=== PATIENT | male | born 1940 ===

== ENCOUNTER 2023-10-03 15:34 | Inpatient (IN) | payer OTHER ==
[2023-10-03] VITALS (11 sets, daily range): BP systolic 127–165; BP diastolic 76–90
[~2023-10-03] VITALS: Ht 175.3 cm; Wt 81.7 kg
[2023-10-03 17:49] LABS: BASOPHILS ABSOLUTE AUTO 0.06 K/mm3 (0.00-0.23); BASOPHILS PERCENT AUTO 1 % (0-2); EOSINOPHILS ABSOLUTE AUTO 0.36 K/mm3 (0.00-0.68); EOSINOPHILS PERCENT AUTO 4 % (0-6); Hematocrit 31.4 % (37.0-53.0); Hemoglobin 10.5 g/dL (13.5-17.5); IMMATURE GRAN ABSOLUTE AUTO 0.03 K/mm3 (0.00-0.10); IMMATURE GRAN PERCENT AUTO 0 % (0-1); LYMPHOCYTES ABSOLUTE AUTO 1.29 K/mm3 (0.84-5.20); LYMPHOCYTES PERCENT AUTO 15 % (21-46); MONOCYTES ABSOLUTE AUTO 0.56 K/mm3 (0.16-1.47); MONOCYTES PERCENT AUTO 6 % (4-13); Mean Corpuscular HGB 30.4 pg (26.0-34.0); Mean Corpuscular HGB Conc 33.4 g/dL (31.5-36.5); Mean Corpuscular Volume 91 fL (80-100); Mean Platelet Volume 12.4 fL (9.1-12.4); NEUTROPHILS ABSOLUTE AUTO 6.48 K/mm3 (1.96-9.15); NEUTROPHILS PERCENT AUTO 74 % (41-73); Platelet Count 181 K/mm3 (150-400); RDW Coefficient Variation 14.3 % (11.7-14.2); RDW Standard Deviation 47.7 fL (35.1-46.3); Red Blood Cell Count 3.45 M/mm3 (4.30-5.90); White Blood Cell Count 8.78 K/mm3 (4.00-11.30)
[2023-10-03 18:25] LABS: Albumin, Blood 3.2 g/dL (3.4-5.0); Albumin/Globulin Ratio 1.2 (0.8-1.8); Bilirubin, Total 0.5 mg/dL (0.1-1.0); Bun/Creatinine Ratio 19.7 (12.0-20.0); Calcium, Blood 7.9 mg/dL (8.5-10.1); Creatinine, Blood 2.29 mg/dL (0.60-1.20); Globulin, Blood 2.7 g/dL (2.2-4.0); Potassium, Blood 4.9 mmol/L (3.5-5.5); Total Protein, Blood 5.9 g/dL (6.4-8.2)
--- NOTE | 2023-10-03 21:12 | NUR ---
ARRIVAL PT NEW ADMIT FROM PACU. ARRIVED A/OX4, IN NO DISTRESS. ON 2L VIA NC. EXTERNAL FIXATOR PRESENT ON LLE. CAP REFILL 3-4 SECONDS. PT CAN MOVE TOES ON COMMAND. LOCAL IN PLACE, MINIMAL SENSATION. PT SDENIES PAIN AT THIS TIME. VSS, MILD TACHYCARDIA NOTED. PT TALKING AT FAMILY ON THE PHONE AT THIS TIME
--- NOTE | 2023-10-03 22:25 | NUR ---
CT SCAN PT OFF TO CT SCAN
--- NOTE | 2023-10-03 22:52 | NUR ---
CT SCAN PT IS BACK FROM CT, O2 TITRATED DOWN TO 1L VIA NC. PT REPORTS MINIMAL PAIN AT THIS TIME. LLE ELEVATED AND ICED PER DR REBOLLEDO. CALL LIGHT IN REACH
[2023-10-04 04:33] VITALS: BP 145/82
[2023-10-04 05:14] LABS: BASOPHILS ABSOLUTE AUTO 0.04 K/mm3 (0.00-0.23); BASOPHILS PERCENT AUTO 1 % (0-2); EOSINOPHILS ABSOLUTE AUTO 0.29 K/mm3 (0.00-0.68); EOSINOPHILS PERCENT AUTO 4 % (0-6); Hematocrit 28.6 % (37.0-53.0); Hemoglobin 9.5 g/dL (13.5-17.5); IMMATURE GRAN ABSOLUTE AUTO 0.01 K/mm3 (0.00-0.10); IMMATURE GRAN PERCENT AUTO 0 % (0-1); LYMPHOCYTES ABSOLUTE AUTO 1.39 K/mm3 (0.84-5.20); LYMPHOCYTES PERCENT AUTO 19 % (21-46); MONOCYTES ABSOLUTE AUTO 0.75 K/mm3 (0.16-1.47); MONOCYTES PERCENT AUTO 10 % (4-13); Mean Corpuscular HGB 30.3 pg (26.0-34.0); Mean Corpuscular HGB Conc 33.2 g/dL (31.5-36.5); Mean Corpuscular Volume 91 fL (80-100); Mean Platelet Volume 11.7 fL (9.1-12.4); NEUTROPHILS PERCENT AUTO 66 % (41-73); Platelet Count 156 K/mm3 (150-400); RDW Coefficient Variation 14.6 % (11.7-14.2); RDW Standard Deviation 48.7 fL (35.1-46.3); Red Blood Cell Count 3.14 M/mm3 (4.30-5.90); White Blood Cell Count 7.28 K/mm3 (4.00-11.30)
--- NOTE | 2023-10-04 05:30 | NUR ---
SHIFT SUMMARY POD1 EXTERNAL FIXATION. SENSATION REMAINS INTACT BUT DULLED D/T LOCAL BLOCK. CAP REFILL SLIGHTLY SLOW AT 3-4 SECONDS. PT MOVES TOES ON COMMAND. LLE HAS BEEN ELEVATED AND ICE BEHIND THE KNEE PER DR. REBOLLEDO. PT MEDICATED FOR PAIN TWICE WITH GOOD RESULT. PT VOIDING INTO URINAL W/O DIFFICUTLY. NEURO CHECKS HAVE REMAINED WNL. NO ACUTE EVENTS T/O THE NIGHT. POSSIBLE D/C TODAY
[2023-10-04 05:55] LABS: Magnesium, Blood 2.1 mg/dL (1.6-2.4)
[2023-10-04 06:00] LABS: Albumin, Blood 2.8 g/dL (3.4-5.0); Albumin/Globulin Ratio 1.2 (0.8-1.8); Bilirubin, Total 0.3 mg/dL (0.1-1.0); Bun/Creatinine Ratio 19.8 (12.0-20.0); Calcium, Blood 7.3 mg/dL (8.5-10.1); Creatinine, Blood 2.17 mg/dL (0.60-1.20); Globulin, Blood 2.4 g/dL (2.2-4.0); Potassium, Blood 4.7 mmol/L (3.5-5.5); Total Protein, Blood 5.2 g/dL (6.4-8.2)
[2023-10-04 07:33] VITALS: BP 135/74
[2023-10-04 08:48] LABS: IMMATURE RETIC FRACTION 12.9 % (2.3-16.0); RETIC HGB EQUIVALENT 35.2 pg (28.20-36.60); RETICULOCYTE ABSOLUTE 0.0494 M/mm3 (0.0200-0.1100); RETICULOCYTE COUNT PERCENT 1.59 % (0.50-2.50)
[2023-10-04] MEDS ORDERED: INSULANPEN SC (14:27)
[2023-10-04] MEDS ORDERED: ZOCOR20 MG PO (14:28)
[2023-10-04] MEDS ORDERED: MULVITA PO (14:28)
[2023-10-04] MEDS ORDERED: TAMS.4ER PO (14:28)
[2023-10-04] MEDS ORDERED: Synthroid200 MCG PO (14:29)
[2023-10-04] MEDS ORDERED: LEVOTHYROXINE200 MCG PO (14:30)
[2023-10-04] MEDS ORDERED: FERSU300 PO (14:31)
[2023-10-04] MEDS ORDERED: B12 PO (14:31)
[2023-10-04] MEDS ORDERED: Norco 10-325 T1 EACH PO (14:32)
[2023-10-04] MEDS ORDERED: NITR.4SL SL (14:34)
--- NOTE | 2023-10-04 15:26 | NUR ---
DR. SKINNER NOTIFIED THAT RECORDS FROM PCP WERE OBTAINED AND MED REC WAS UPDATED.
[2023-10-04 15:30] VITALS: BP 142/84
--- NOTE | 2023-10-04 18:36 | NUR ---
SHIFT SUMMARY PT PT POD#1 FROM EXTERNAL FIXATION TO REPAIR L ANKLE FX. PT WORKED WITH THERAPY AND IS A 1 ASSIST WHEN OOB. PLAN FOR DISCHARGE TO SNF. PAIN MANAGED WITH PO PAIN MEDICATION. PT TOLERATING PO. PT SITTING IN RECLINER, CALL LIGHT WITHIN REACH.
[2023-10-04 19:20] VITALS: BP 175/91
[2023-10-05 02:37] VITALS: BP 167/83
--- NOTE | 2023-10-05 04:27 | NUR ---
SHIFT SUMMARY POD 2 L ANKLE FX REPAIR c EXTERNAL FIXATION. NO ACUTE CHANGES OVERNIGHT, VS WNL FOR PT. PT STAYED IN CHAIR UNTIL APPROX 0245, STAND/PIVOT TO BED USING FWW c GB & 1-2 PERSON ASSIST. NWB ON L SIDE, ASHLY WRAP C/D/I. PAIN MANAGED PER EMAR. TOLERATING ORALS, VOIDING USING URINAL INDEPENDENTLY. ANTICIPATED D/C TO SNF IN [place] [facility] WHEN BED AVAILABLE. CALL LIGHT WITHIN REACH, BED IN LOWEST POSITION, WILL REPORT TO DAY RN.
[2023-10-05 07:05] VITALS: BP 155/82
[2023-10-05 14:26] VITALS: BP 139/77
[2023-10-05 17:10] LABS: SARS-Cov-2 (COVID-19) PCR, MMC NEGATIVE (NEGATIVE)
--- NOTE | 2023-10-05 18:33 | NUR ---
SHIFT SUMMARY/DISCHARGE: PT TO D/C PRIOR TO SHIFT CHANGE TO [facility]. PT A&O X4. PLEASANT AND COOPERATIVE WITH CARE. PT UP IN RECLINER FOR BREAKFAST AND LUNCH. PT C/O 5/10 PAIN THIS SHIFT. MEDICATED PER EMAR. PT WORKED WITH PT THIS SHIFT. PT ABLE TO USE WALKER WITH ONE PERSON ASSIST AND GB. REPORT GIVEN TO NURSE @ SNF. CALL LIGHT IN REACH. BED IN LOWEST POSITION.
== END 2023-10-05 18:47 | DRG 494 ==
LOC: ER 15:34 → SURS 19:28
PROVIDERS: Family Medicine; Physician Assistant; Podiatrist Foot & Ankle Surgery; Surgery; ADMIT Surgery
PROC: 0QSKXZZ Reposition Left Fibula, External Approach (ICD-10-PCS; 2023-10-03)
PROC: 0QSH35Z Reposition Left Tibia with External Fixation Device, Percutaneous Approach (ICD-10-PCS; principal; 2023-10-03 18:30)
PROC: 0QSHXZZ Reposition Left Tibia, External Approach (ICD-10-PCS; 2023-10-03 18:30)
DX: S82.872B Displaced pilon fracture of left tibia, initial encounter for open fracture type I or II (principal); N18.30 Chronic kidney disease, stage 3 unspecified; E11.22 Type 2 diabetes mellitus with diabetic chronic kidney disease; W13.2XXA Fall from, out of or through roof, initial encounter; G25.2 Other specified forms of tremor; R93.5 Abnormal findings on diagnostic imaging of other abdominal regions, including retroperitoneum; D63.1 Anemia in chronic kidney disease; E03.9 Hypothyroidism, unspecified; N40.0 Benign prostatic hyperplasia without lower urinary tract symptoms; E78.5 Hyperlipidemia, unspecified; E11.649 Type 2 diabetes mellitus with hypoglycemia without coma; Y92.89 Other specified places as the place of occurrence of the external cause; Z87.891 Personal history of nicotine dependence; Z79.4 Long term (current) use of insulin; Z60.2 Problems related to living alone; Z79.890 Hormone replacement therapy; Z79.84 Long term (current) use of oral hypoglycemic drugs
CPT/HCPCS: 36415; 70450; 71045; 71260; 72125; 73590; 73600; 73610; 73700; 74177; 80053; 82947; 83735; 85025; 85045; 93005; 93010; 96374-59; 96375-59; 97110; 97116; 97162; 99285-25; A9270; C1713; J0690; J1170; J1650; J1885; J2371; J2704; J2795; J3010; J7030; J7050; Q9967; U0002

== ENCOUNTER 2023-10-13 19:12 | Emergency (ER) | payer OTHER ==
[~2023-10-13] VITALS: Ht 175.3 cm; Wt 77.1 kg
[~2023-10-13 19:12] MED LIST: B12 PO; FERSU300 PO; INSULANPEN SC; LEVOTHYROXINE200 MCG PO; MULVITA PO; NITR.4SL SL; Norco 10-325 T1 EACH PO; Simvastatin40 MG PO; Synthroid200 MCG PO; TAMS.4ER PO
[2023-10-13 20:11] LABS: BASOPHILS ABSOLUTE AUTO 0.02 K/mm3 (0.00-0.23); BASOPHILS PERCENT AUTO 0 % (0-2); EOSINOPHILS ABSOLUTE AUTO 0.01 K/mm3 (0.00-0.68); EOSINOPHILS PERCENT AUTO 0 % (0-6); Hematocrit 29.5 % (37.0-53.0); Hemoglobin 10.1 g/dL (13.5-17.5); IMMATURE GRAN ABSOLUTE AUTO 0.05 K/mm3 (0.00-0.10); IMMATURE GRAN PERCENT AUTO 1 % (0-1); LYMPHOCYTES ABSOLUTE AUTO 0.38 K/mm3 (0.84-5.20); LYMPHOCYTES PERCENT AUTO 5 % (21-46); MONOCYTES ABSOLUTE AUTO 0.32 K/mm3 (0.16-1.47); MONOCYTES PERCENT AUTO 4 % (4-13); Mean Corpuscular HGB 30.6 pg (26.0-34.0); Mean Corpuscular HGB Conc 34.2 g/dL (31.5-36.5); Mean Corpuscular Volume 89 fL (80-100); Mean Platelet Volume 10.6 fL (9.1-12.4); NEUTROPHILS ABSOLUTE AUTO 7.72 K/mm3 (1.96-9.15); NEUTROPHILS PERCENT AUTO 91 % (41-73); Platelet Count 270 K/mm3 (150-400); RDW Coefficient Variation 13.8 % (11.7-14.2); RDW Standard Deviation 45.4 fL (35.1-46.3)
[2023-10-13 20:23] LABS: Albumin, Blood 3.1 g/dL (3.4-5.0); Albumin/Globulin Ratio 0.9 (0.8-1.8); Bilirubin, Total 0.9 mg/dL (0.1-1.0); Bun/Creatinine Ratio 17.5 (12.0-20.0); Calcium, Blood 8.9 mg/dL (8.5-10.1); Creatinine, Blood 2.63 mg/dL (0.60-1.20); Globulin, Blood 3.5 g/dL (2.2-4.0); Potassium, Blood 5.2 mmol/L (3.5-5.5); Total Protein, Blood 6.6 g/dL (6.4-8.2)
[2023-10-13] MEDS ORDERED: Robaxin750 MG PO (21:31)
[2023-10-13] MEDS ORDERED: OXYC10ER PO (21:31)
[2023-10-13] MEDS ORDERED: LEVSOD100 PO (21:32)
[2023-10-13] MEDS ORDERED: DULCOLAX400 MG/5 M PO (21:33)
[2023-10-13] MEDS ORDERED: BISA10S PR (21:34)
[2023-10-13] MEDS ORDERED: DOCU100 PO (21:35)
[2023-10-13] MEDS ORDERED: Calcium Carbon500 MG PO (21:36)
[2023-10-13] MEDS ORDERED: Acetaminophen650 M1 PO (21:36)
[2023-10-13 22:30] VITALS: BP 172/89
[2023-10-13] MEDS ORDERED: PROM25 PO (22:48)
[2023-10-14] MEDS ORDERED: Pepcid40 MG PO (11:04)
[2023-10-14] MEDS ORDERED: ONDA4ODT MM (11:04)
[2023-10-18] MEDS ORDERED: TAMS.4ER PO (11:53)
[2023-10-18] MEDS ORDERED: INSULIN GL100 UNIT/3 SQ (11:53)
== END 2023-10-14 02:13 | disposition home or self-care (01) ==
LOC: ER 19:12
PROVIDERS: Emergency Medicine
DX: R11.2 Nausea with vomiting, unspecified (principal)
CPT/HCPCS: 80053; 83690; 85025; 96361; 96374; 96375; 99284-25; A9270; J2405; J3010; J7030

== ENCOUNTER 2023-10-14 09:25 | Emergency (ER) | payer MEDICARE, OTHER ==
[~2023-10-14] VITALS: Ht 170.2 cm; Wt 79.4 kg
[~2023-10-14 09:25] MED LIST changes: +Acetaminophen650 M1 PO; +BISA10S PR; +Calcium Carbon500 MG PO; +DOCU100 PO; +DULCOLAX400 MG/5 M PO; +LEVSOD100 PO; +OXYC10ER PO; +PROM25 PO; +Robaxin750 MG PO
[2023-10-14 10:07] LABS: BASOPHILS ABSOLUTE AUTO 0.02 K/mm3 (0.00-0.23); BASOPHILS PERCENT AUTO 0 % (0-2); EOSINOPHILS PERCENT AUTO 0 % (0-6); Hematocrit 32.6 % (37.0-53.0); Hemoglobin 11.1 g/dL (13.5-17.5); IMMATURE GRAN ABSOLUTE AUTO 0.04 K/mm3 (0.00-0.10); IMMATURE GRAN PERCENT AUTO 0 % (0-1); LYMPHOCYTES ABSOLUTE AUTO 0.56 K/mm3 (0.84-5.20); LYMPHOCYTES PERCENT AUTO 4 % (21-46); MONOCYTES PERCENT AUTO 4 % (4-13); Mean Corpuscular HGB 30.2 pg (26.0-34.0); Mean Corpuscular Volume 89 fL (80-100); NEUTROPHILS ABSOLUTE AUTO 13.61 K/mm3 (1.96-9.15); NEUTROPHILS PERCENT AUTO 92 % (41-73); RDW Coefficient Variation 13.9 % (11.7-14.2); RDW Standard Deviation 45.6 fL (35.1-46.3); Red Blood Cell Count 3.67 M/mm3 (4.30-5.90); White Blood Cell Count 14.83 K/mm3 (4.00-11.30)
[2023-10-14 10:18] LABS: Mean Platelet Volume 10.9 fL (9.1-12.4); Platelet Count 276 K/mm3 (150-400)
[2023-10-14 10:30] LABS: Albumin, Blood 3.2 g/dL (3.4-5.0); Albumin/Globulin Ratio 0.8 (0.8-1.8); Bilirubin, Total 0.9 mg/dL (0.1-1.0); Bun/Creatinine Ratio 22.6 (12.0-20.0); Creatinine, Blood 2.3 mg/dL (0.60-1.20); Globulin, Blood 4.1 g/dL (2.2-4.0); Potassium, Blood 5.1 mmol/L (3.5-5.5); Total Protein, Blood 7.3 g/dL (6.4-8.2)
[2023-10-14] MEDS ORDERED: ONDA4ODT MM (11:04)
[2023-10-14] MEDS ORDERED: Pepcid40 MG PO (11:04)
[2023-10-14 12:41] VITALS: BP 115/57
[2023-10-18] MEDS ORDERED: TAMS.4ER PO (11:53)
[2023-10-18] MEDS ORDERED: INSULIN GL100 UNIT/3 SQ (11:53)
== END 2023-10-14 12:42 | disposition home or self-care (01) ==
LOC: ER 09:25
PROVIDERS: Emergency Medicine
DX: K29.70 Gastritis, unspecified, without bleeding (principal); E11.22 Type 2 diabetes mellitus with diabetic chronic kidney disease; N18.9 Chronic kidney disease, unspecified; E03.9 Hypothyroidism, unspecified; E78.5 Hyperlipidemia, unspecified; Z87.891 Personal history of nicotine dependence; Z79.899 Other long term (current) drug therapy
CPT/HCPCS: 80053; 83690; 85025; 93005; 93010; 96374; 96375; 99285-25; A9270; J2270; J2405

== ENCOUNTER 2023-10-16 16:19 | Emergency (ER) | payer MEDICARE, OTHER ==
[~2023-10-16] VITALS: Ht 172.7 cm; Wt 79.4 kg
[~2023-10-16 16:19] MED LIST changes: +ONDA4ODT MM; +Pepcid40 MG PO
[2023-10-16 17:25] LABS: BASOPHILS ABSOLUTE AUTO 0.02 K/mm3 (0.00-0.23); BASOPHILS PERCENT AUTO 0 % (0-2); EOSINOPHILS PERCENT AUTO 0 % (0-6); Hematocrit 32.6 % (37.0-53.0); Hemoglobin 10.8 g/dL (13.5-17.5); IMMATURE GRAN ABSOLUTE AUTO 0.05 K/mm3 (0.00-0.10); IMMATURE GRAN PERCENT AUTO 1 % (0-1); LYMPHOCYTES ABSOLUTE AUTO 0.68 K/mm3 (0.84-5.20); LYMPHOCYTES PERCENT AUTO 7 % (21-46); MONOCYTES ABSOLUTE AUTO 0.44 K/mm3 (0.16-1.47); MONOCYTES PERCENT AUTO 5 % (4-13); Mean Corpuscular HGB 29.8 pg (26.0-34.0); Mean Corpuscular HGB Conc 33.1 g/dL (31.5-36.5); Mean Corpuscular Volume 90 fL (80-100); Mean Platelet Volume 10.1 fL (9.1-12.4); NEUTROPHILS ABSOLUTE AUTO 8.21 K/mm3 (1.96-9.15); NEUTROPHILS PERCENT AUTO 87 % (41-73); Platelet Count 339 K/mm3 (150-400); RDW Coefficient Variation 13.8 % (11.7-14.2); RDW Standard Deviation 45.2 fL (35.1-46.3); Red Blood Cell Count 3.63 M/mm3 (4.30-5.90)
[2023-10-16 17:44] LABS: Albumin/Globulin Ratio 0.8 (0.8-1.8); Bilirubin, Total 0.9 mg/dL (0.1-1.0); Calcium, Blood 8.7 mg/dL (8.5-10.1); Creatinine, Blood 2.03 mg/dL (0.60-1.20); Potassium, Blood 4.9 mmol/L (3.5-5.5)
[2023-10-16 19:33] VITALS: BP 134/68
[2023-10-16] MEDS ORDERED: SUCR1 PO (20:05)
[2023-10-18] MEDS ORDERED: TAMS.4ER PO (11:53)
[2023-10-18] MEDS ORDERED: INSULIN GL100 UNIT/3 SQ (11:53)
== END 2023-10-16 22:44 | disposition home or self-care (01) ==
LOC: ER 16:19
PROVIDERS: Student in an Organized Health Care Education/Training Program
DX: K21.9 Gastro-esophageal reflux disease without esophagitis (principal); R07.9 Chest pain, unspecified; E11.22 Type 2 diabetes mellitus with diabetic chronic kidney disease; N18.9 Chronic kidney disease, unspecified; E03.9 Hypothyroidism, unspecified; E78.5 Hyperlipidemia, unspecified; N40.0 Benign prostatic hyperplasia without lower urinary tract symptoms; Z79.899 Other long term (current) drug therapy
CPT/HCPCS: 71046; 74177; 80053; 83690; 84484; 85025; 93005; 93010; 99285-25; A9270; Q9967

== ENCOUNTER 2023-10-19 11:23 | Inpatient (IN) | payer MEDICARE, OTHER ==
[2023-10-19] VITALS (24 sets, daily range): BP systolic 61–133; BP diastolic 44–83
[~2023-10-19] VITALS: Ht 172.7 cm; Wt 83.3 kg
[~2023-10-19 11:23] MED LIST changes: +INSULIN GL100 UNIT/3 SQ; +SUCR1 PO
--- NOTE | 2023-10-19 12:00 | NUR ---
ASSUMED CARE OF PATIENT FROM KAIDEN DANIELLE AT 1145. PT IN BED, PT APPEARS SOMEWHAT PT IN BED, PT APPEARS SOMEWHAT DECREASED IN HIS RESPONSES BUT ORIENTED TO SELF, KNOWS HE'S IN THE HOSPITAL. PTS FAMILY REPORTS THAT HE HAS BEEN SICK FOR THE PAST WEEK. HAVING TROUBLES IWTH HEATBURN AND ACID REFLUX. REPORTS THAT PT HAD DRY HEAVES THIS MORNING. PT HAS BEEN SEEN 4 TIMES IN THE ER FOR C/O THROWING UP BLOOD, VOMITING, CHEST PAIN AND SENT BACK TO CARE FACILITY EACH TIME. PT VITAL SIGN TAKEN AND PATIENT NOTED TO BE SEVERLY HYPOTENSIVE. IV STARTED AND FLUIDS INITIATED. EKG TAKEN BY SHASHI RICHEY
--- NOTE | 2023-10-19 12:20 | NUR ---
DR PETERSON OVER TO EVALUATE PATIENT. DR. PETERSON ATTEMPTING TO CONTACT DR. LOPEZ FOR DIRECT ADMITTING THE PATIENT SINCE PT HAS BEEN SEEN IN THE ER 4 TIMES THIS WEEK AND SENT BACK TO FACILITY. FAMILY WOULD LIKE TO FOR GO ANOTHER ER VISIT IF POSSIBLE.
--- NOTE | 2023-10-19 12:37 | NUR ---
PT PROVIDED WITH A WET CLOTH TO SUCK ON. ATTEMPTED TO GIVE HIM A WET SPONGE BUT PT STATES HE DOESN'T LIKE THOSE. FAMILY REPORTS THAT PATIENT MENTATION APPEARS BETTER. ZOFRAN 4MG IV PROVIDED
--- NOTE | 2023-10-19 13:31 | NUR ---
PER DR LOPEZ, PT IS ALLOWED TO EAT AND DRINK. PT TAKING SIPS OF FLUID. C/O BURNING IN CHEST WHEN HE SWALLOWS. PT MENTATION MUCH IMPROVED FROM HIS ARRIVAL TO DAY SURGERY. AT THIS TIME WE ARE WAITING FOR ADMIT TO FOR FLOOR, PT DAUGHTER AND SON IN LAW AT BEDSIDE.
--- NOTE | 2023-10-19 13:52 | NUR ---
PT PULLED OUT IV WHILE REPOSITIONING HIMSELF IN BED. NEW IV PLACED IN RFA. PT TALKATIVE AND FRIENDLY. REPORTS FEELING A LITTLE BETTER. PT GRIMACING WHEN HE SWALLOWS WATER.
[2023-10-19 14:33] LABS: BASOPHILS ABSOLUTE AUTO 0.05 K/mm3 (0.00-0.23); BASOPHILS PERCENT AUTO 0 % (0-2); EOSINOPHILS ABSOLUTE AUTO 0.03 K/mm3 (0.00-0.68); EOSINOPHILS PERCENT AUTO 0 % (0-6); Hematocrit 32.5 % (37.0-53.0); Hemoglobin 11.2 g/dL (13.5-17.5); IMMATURE GRAN ABSOLUTE AUTO 0.48 K/mm3 (0.00-0.10); IMMATURE GRAN PERCENT AUTO 3 % (0-1); LYMPHOCYTES ABSOLUTE AUTO 1.07 K/mm3 (0.84-5.20); LYMPHOCYTES PERCENT AUTO 7 % (21-46); MONOCYTES PERCENT AUTO 6 % (4-13); Mean Corpuscular HGB 30.3 pg (26.0-34.0); Mean Corpuscular HGB Conc 34.5 g/dL (31.5-36.5); Mean Corpuscular Volume 88 fL (80-100); Mean Platelet Volume 10.7 fL (9.1-12.4); NEUTROPHILS ABSOLUTE AUTO 13.27 K/mm3 (1.96-9.15); NEUTROPHILS PERCENT AUTO 84 % (41-73); Platelet Count 351 K/mm3 (150-400); RDW Coefficient Variation 13.8 % (11.7-14.2); RDW Standard Deviation 43.8 fL (35.1-46.3)
--- NOTE | 2023-10-19 14:50 | NUR ---
REPORT TO LIZETTE EID RN TO ASSUME CARE OF PATIENT. PT NS INFUSING, PROTONIX INFUSING. PTS APPEARS TO BE RESTING COMFORTABLY. PT TAKEN TO PCU 19 WITH FAMILY ESCORTING US TO ROOM.
[2023-10-19 14:56] LABS: Albumin/Globulin Ratio 0.9 (0.8-1.8); Bilirubin, Total 0.8 mg/dL (0.1-1.0); Bun/Creatinine Ratio 24.5 (12.0-20.0); Calcium, Blood 8.8 mg/dL (8.5-10.1); Creatinine, Blood 3.27 mg/dL (0.60-1.20); Globulin, Blood 3.5 g/dL (2.2-4.0); Potassium, Blood 4.3 mmol/L (3.5-5.5); Total Protein, Blood 6.5 g/dL (6.4-8.2)
--- NOTE | 2023-10-19 15:04 | NUR ---
PT ARRIVED TO UNIT AT APROX 1500 FROM DAY SURGERY. BP 113/84 UPON ARRIVAL TO UNIT HR 88. O2 SAT GREATER THAN 90% ON RA. PT REPORTS THAT FOR MORE THAN 1 WEEK HE HAS BEE VOMITING BLACK AND BM'S ALSO BLACK BM'S. PT REPORTS IN THE ER THIS WEEK FOR THESE SYMPTOMS. UNABLE TO RECALL HOW MANY TIMES. PT WAS IN DAY SURGERY FOR A SCHEDULED ORIF OF L ANKLE AND WAS UNABLE TO COMPLETE D/T HYPOTENSION. PT C/O SEVERE BURING PAIN WHEN ANY PO INTAKE.
[2023-10-19 18:56] LABS: Hematocrit 34.2 % (37.0-53.0); Hemoglobin 11.5 g/dL (13.5-17.5)
[2023-10-20] VITALS (8 sets, daily range): BP systolic 112–175; BP diastolic 60–92
--- NOTE | 2023-10-20 05:16 | NUR ---
SHIFT SUMMARY THIS RN ASSUMED CARE OF PT AT 1900, REPORT FROM LIZETTE DANIELLE. PT RESTING IN HIS ROOM, ALTHOUGH IS EASILY AWAKENED WHEN IN FOR BEDSIDE REPORT. PT A&O X4, PT IS HARD OF HEARING. PT COOPERATIVE WITH CARE. VSS T/O SHIFT; SBP 120 - 130'S, HRR SINUS RHYTHM W/RATE IN 90'S, REMAINS ON RA WITH SPO2 >97%, AND AFEBRILE. PT C/O EPIGASTRIC AND "CHEST PAIN" T/O SHIFT ESPECIALLY WITH PO INTAKE EVEN WATER AND ICE CHIPS. PT GRABS STOMACH DURING EPISODE AND IS GRIMACING. WHEN ASKED ABOUT "CHEST PAIN", PT STATES IT "MACKEY" AND POINTS TO STERNUM/ESOPHAGUS AREA. PT STATES IT "HURTS WORSE WITH EATING OR DRINKING". PT REPORTS "STOMACH FEELING FUNNY" PT UNABLE TO VERBALIZE THAT HE IS NAUSEATED BUT JUST STATES "STOMACH FEELS WEIRD AND FUNNY". MEDICATION FOR NAUSEA PER EMAR WITH SOME RELIEF. PT W/O EMESIS DURING THIS SHIFT. PROTONIX GTT PER EMAR, NS INFUSION PER EMAR AT 100 MLS/HR. PT REPOSITIONING AND USING URINAL INDEPENDENTLY. NO BM THIS SHIFT, STOOL SAMPLE STILL PENDING. WILL UPDATE ONCOMING RN. PT STATES HE HAS NOT HAD BM IN "2-3 DAYS, I THINK". LEFT FOOT REMAINS IN EXTERNAL FIXATION DEVICE, ASHLY WRAPPED; DRESSING C/D/I. LLE COLOR, PULSE, AND SENSATION WNL. PT DENIES PAIN IN LLE, DENIES NUMBNESS AND TINGLING. CALL LIGHT IN REACH, PT ABLE TO VERBALIZE NEEDS. WILL UPDATE ONCOMING RN
[2023-10-20 05:53] LABS: Hematocrit 32.4 % (37.0-53.0); Hemoglobin 10.6 g/dL (13.5-17.5); Mean Corpuscular HGB 29.7 pg (26.0-34.0); Mean Corpuscular HGB Conc 32.7 g/dL (31.5-36.5); Mean Corpuscular Volume 91 fL (80-100); Mean Platelet Volume 10.9 fL (9.1-12.4); Platelet Count 297 K/mm3 (150-400); RDW Coefficient Variation 13.9 % (11.7-14.2); RDW Standard Deviation 46.1 fL (35.1-46.3); Red Blood Cell Count 3.57 M/mm3 (4.30-5.90)
[2023-10-20 06:37] LABS: Albumin, Blood 2.9 g/dL (3.4-5.0); Anion Gap 6 mmol/L (6-16); Blood Urea Nitrogen 74 mg/dL (8-24); Bun/Creatinine Ratio 25.8 (12.0-20.0); CO2, Blood 24 mmol/L (21-32); Calcium, Blood 8.1 mg/dL (8.5-10.1); Chloride, Blood 115 mmol/L (98-108); Creatinine, Blood 2.87 mg/dL (0.60-1.20); Glomerular Filtration Rate 21 (60-); Glucose, Blood 148 mg/dL (70-99); Phosphorus, Blood 3.8 mg/dL (2.5-4.9); Potassium, Blood 4.3 mmol/L (3.5-5.5); Sodium, Blood 145 mmol/L (136-145)
--- NOTE | 2023-10-20 12:59 | NUR ---
THIS NURSE GAVE REPORT TO THEO DANIELLE ON SURGICAL FLOOR. AFTER REPORT THEO DANIELLE HAD NO FURTHER QUESTIONS AT THIS TIME.
--- NOTE | 2023-10-20 19:13 | NUR ---
SHIFT SUMMARY PT TRANSFERRED TO SURGICAL FLOOR ROOM 209 AT 1300 TODAY, ORIENTED TO HIS NEW ROOM, VERIFIED IV INFUSIONS ORDERED, PT RESTING COMFORTABLY IN BED AND MEDICATED FOR PAIN NEEDED. NO ACUTE EVENTS THIS SHIFT, CALL LIGHT IN REACH.
[2023-10-21] VITALS (24 sets, daily range): BP systolic 150–191; BP diastolic 73–107
[2023-10-21 04:05] LABS: Hematocrit 31.9 % (37.0-53.0); Hemoglobin 10.5 g/dL (13.5-17.5); Mean Corpuscular HGB 29.6 pg (26.0-34.0); Mean Corpuscular HGB Conc 32.9 g/dL (31.5-36.5); Mean Corpuscular Volume 90 fL (80-100); Mean Platelet Volume 10.7 fL (9.1-12.4); Platelet Count 249 K/mm3 (150-400); RDW Coefficient Variation 13.6 % (11.7-14.2); RDW Standard Deviation 44.9 fL (35.1-46.3); Red Blood Cell Count 3.55 M/mm3 (4.30-5.90); White Blood Cell Count 10.19 K/mm3 (4.00-11.30)
[2023-10-21 04:35] LABS: Bun/Creatinine Ratio 23.6 (12.0-20.0); Calcium, Blood 7.8 mg/dL (8.5-10.1); Creatinine, Blood 1.95 mg/dL (0.60-1.20); Magnesium, Blood 2.2 mg/dL (1.6-2.4); Potassium, Blood 3.8 mmol/L (3.5-5.5)
--- NOTE | 2023-10-21 05:05 | NUR ---
SHIFT SUMMARY VSS, SOME HTN NOTED. PT REMAINS ASYMPTOMATIC. TELE READS SR @82. SENSATION AND CIRCULATION REMAINS INTACT IN LLE. PT ABLE TO MOVE THIS LEG ON COMMAND, BUT REMAINS NWB. LLE REMAINS ELEVATED. PT SLEPT ON AND OFF T/O THE NIGHT. STRUGGLED WITH EPIGASTRIC DISCOMFORT. ZOFRAN GIVEN WITH MODERATE RELIEF, PROTONIX DRIP REMAINS IN PLACE. DRY HEAVING NOTED T/O THE NIGHT, NO EMESIS NOTED. NO BM NOTED. PT VOIDING W/O DIFFICULTY. NO ACUTE EVENTS NOTED.
--- NOTE | 2023-10-21 14:54 | NUR ---
PACU TO 209 PATIENT BROUGHT BACK TO HIS ROOM FROM PACU VIA GURNEY, TRANSFERRED TO HIS BED VIA SLIDER SHEET AND X3 STAFF. L FOOT PROPPED UP ON PILLOWS UNDER THE ANKLE DIRECTED BY PODSHERRILLRY. CIRCULATION AND SENSATION INTACT IN L FOOT, SPLINT/BRACE IN PLACE WRAPPED UP WITH AN ASHLY WRAP WITH ONLY THE TIPS OF HIS TOES EXPOSED. DENIES PAIN AT THIS TIME, EDUCATED TO CALL WHEN PAIN STARTS PRESENTING SO WE CAN STAY ON TOP OF IT. PROVIDED WITH WATER, POST OP VITALS STARTED.
--- NOTE | 2023-10-21 18:46 | NUR ---
SHIFT SUMMARY POD0 L ANKLE HARDWARE REMOVAL WITH ORIF, A/OX4, VSS, TOLERATING PO POST OP, PT REPORTS PO IS MORE TOLERABLE TODAY, PLAN FOR EGD TOMORROW, NPO AT MIDNIGHT. NO ACUTE EVENTS THIS SHIFT, CALL LIGHT IN REACH
[2023-10-21 23:40] LABS: Glucose, Blood 640 mg/dL (70-99)
--- NOTE | 2023-10-21 23:45 | NUR ---
BLOOD SUAGR COVERAGE HS CBG HOWED >500. LABS ORDERED PER PROTOCOL, CBG 640. HOSPITALIST CALLED, OBTAINED ORDER FOR 14 U SHORT ACTING INSULIN NOW AND TO RECHECK CBG IN 2 HOURS. ALSO TO INCREASE SS COVERAGE TO HIGH. PLAN TO CALL WITH FURTHER CONCERNS
[2023-10-22] VITALS (18 sets, daily range): BP systolic 80–143; BP diastolic 56–88
--- NOTE | 2023-10-22 02:31 | NUR ---
BLOOD SUGAR CONTROL UPDATE RECHECKED CHG AFTER [address] RONQUILLO, CBG REMAINS ELEVATED @456. CALL PLACED TO DR. MEZA AND OBTAINED ORDER FOR 15 U GLARGINE AND FENT FOR PAIN CONTROL. PLAN TO CALL WITH FURTHER CONCERNS
--- NOTE | 2023-10-22 05:14 | NUR ---
SHIFT SUMMARY POD1 EXTERNAL FIXATION REMOVAL ON LLE. TOES REMAIN WARM TO THE TOUCH WITH 3 SECOND CAP REFILL. PT ABLE TO SLIGHTLY MOVE TOES, HAS DULLED SENSATION IN EXTREMITY D/T NERVE BLOCK PLACED IN OR. OBTAINED ORDER FOR FENT D/T PT BEGINNING TO EXPERIENCE PAIN, MEDICATED ONCE WITH GOOD RESULTS. PT GOT LITTLE SLEEP T/O THE NIGHT, REPORTS FEELING RESTLESS. ABD PAIN HAS SIGNIFIGANTLY IMPROVED COMPARED TO PREVIOUS ASSESSMENT. PT REPORTS INTERMITTENT HEARTBURN, NO EMESIS OR DRY HEAVING NOTED. PT VOIDING INTO URINAL INDEP, NO BM NOTED. PLAN FOR EGD TODAY, SEE NURSE NOTIFY ORDER FOR DIET PLAN. OTHERWISE, NO ACUTE EVENTS NOTED.
[2023-10-22 05:57] LABS: BASOPHILS ABSOLUTE AUTO 0.02 K/mm3 (0.00-0.23); BASOPHILS PERCENT AUTO 0 % (0-2); EOSINOPHILS ABSOLUTE AUTO 0.04 K/mm3 (0.00-0.68); EOSINOPHILS PERCENT AUTO 0 % (0-6); Hematocrit 28.6 % (37.0-53.0); Hemoglobin 9.4 g/dL (13.5-17.5); IMMATURE GRAN ABSOLUTE AUTO 0.19 K/mm3 (0.00-0.10); IMMATURE GRAN PERCENT AUTO 1 % (0-1); LYMPHOCYTES ABSOLUTE AUTO 1.34 K/mm3 (0.84-5.20); LYMPHOCYTES PERCENT AUTO 9 % (21-46); MONOCYTES ABSOLUTE AUTO 1.54 K/mm3 (0.16-1.47); MONOCYTES PERCENT AUTO 11 % (4-13); Mean Corpuscular HGB 29.8 pg (26.0-34.0); Mean Corpuscular HGB Conc 32.9 g/dL (31.5-36.5); Mean Corpuscular Volume 91 fL (80-100); Mean Platelet Volume 10.9 fL (9.1-12.4); NEUTROPHILS ABSOLUTE AUTO 11.37 K/mm3 (1.96-9.15); NEUTROPHILS PERCENT AUTO 79 % (41-73); Platelet Count 234 K/mm3 (150-400); RDW Coefficient Variation 13.5 % (11.7-14.2); RDW Standard Deviation 44.8 fL (35.1-46.3); Red Blood Cell Count 3.15 M/mm3 (4.30-5.90)
[2023-10-22 06:27] LABS: Bun/Creatinine Ratio 21.8 (12.0-20.0); Creatinine, Blood 1.74 mg/dL (0.60-1.20); Potassium, Blood 3.8 mmol/L (3.5-5.5)
--- NOTE | 2023-10-22 13:41 | NUR ---
PT HERE FOR FLOOR FOR EGD. PT HAS A LEFT ANKLE FRACTURE. Patient confirms NPO status and agrees with scheduled surgery. Pre-Op teaching done. Pt verbalizes understanding. History, Chart, Medications and Allergies reviewed before start of procedure. PT SEEMS SLIGHTLY CONFUSED. LOOKING AROUND AND SAYING "I DON'T KNOW WHY I'M TALKING SO MUCH" OVER AND OVER. CBG=63 1344. 25 ML D50 IVP GIVEN PER ANYA DANIELLE
--- NOTE | 2023-10-22 13:56 | NUR ---
10/22/23 1356 Alfreda Lara History, Chart, Medications and Allergies reviewed before start of procedure. 3-LEAD EKG REVIEWED WITH PHYSICIAN PRIOR TO START OF PROCEDURE. MONITOR INTACT WITH CONTINUOUS PULSE OXIMETRY, CONTINUOUS END TITAL CO2, AND INTERMITTENT BLOOD PRESSURE. O2 VIA N/C INTACT THROUGHOUT SEDATION/PROCEDURE. PATIENT DETERMINED TO BE ASA APPROPRIATE FOR PROPOFOL SEDATION PRIOR TO START OF PROCEDURE BY .
--- NOTE | 2023-10-22 14:00 | NUR ---
PT REPORTS "NOT TO GOOD" WHEN ASKED HOW HE WAS FEELING. PT GIVEN THE OTHER HALF OF D50. WHILE GIVING IT PT STATES "I'M STARTING TO FEEL BETTER" WILL CHECK BLOOD SUGAR IN 15 MINUTES AND CONTINUE TO MONITOR PT.
--- NOTE | 2023-10-22 14:05 | NUR ---
10/22/23 1405 Bella Marsh VERIFICATIONS: EDIT CHART.
--- NOTE | 2023-10-22 14:17 | NUR ---
BLOOD SUGAR 123. PT RESTING, REPORT TO KAYLEE Nieto RN TO ASSUME CARE OF PATIENT.
--- NOTE | 2023-10-22 18:43 | NUR ---
SHIFT SUMMARY PT A&OX4, VSS/RA/CBG AC-HS, DANYELLE PO ADA DIET, VOIDING/URINAL, BEDREST/REPOSITION W/ASSIST - PHYSICAL THERAPY EVAL TOMORROW, COMPLETED EGD TODAY, LR @ 100 MLS/HR AND ANCEF Q8H, PAIN MANAGED WITH PERCOCET. WILL REPORT TO ONCOMING NOC RN.
[2023-10-23 02:22] VITALS: BP 151/84
--- NOTE | 2023-10-23 06:43 | NUR ---
SHIFT SUMMARY NO ACUTE EVENTS THROUGH THE NIGHT, PT IS A&O X4, ON RA, VSS. LLE ELEVATED ON PILLOWS, DSG INTACT, CIRC WNL, DENIES N/T, PAIN MANAGED WITH PO MEDS, TOLERATING PO INTAKE, VOIDING WNL, IN THIS AM TO SPEAK W/PT, CALL LIGHT IN REACH, REPORT GIVEN TO DAY RN
[2023-10-23 07:15] VITALS: BP 149/90
[2023-10-23 13:12] VITALS: BP 114/99
[2023-10-23 14:50] VITALS: BP 112/78
--- NOTE | 2023-10-23 16:20 | NUR ---
SHIFT SUMMARY PT A&OX4/JAMUL, VSS/RA/CBGs COV PER EMAR, DANYELLE PO ADA/THIN LIQUIDS, VOIDING/URINAL, PAIN MANAGED, STAND BEDSIDE WITH FWW/GB/2 PP MOD ASSIST - HAS NOT TRANSFERRED TO CHAIR, PT WEAK. POD2 EXT FIXATION REMOVAL LLE, CAST & ASHLY INTACT, ELEVATED ON PILLOWS. IV DC'D. LEAVING HERE VIA GURNEY TO [facility]; REPORT CALLED TO GLADYS AT .
[2023-10-23 19:47] VITALS: BP 104/61
[2023-10-24 02:01] VITALS: BP 141/79
[2023-10-24 04:01] LABS: Hematocrit 26.7 % (37.0-53.0); Hemoglobin 8.9 g/dL (13.5-17.5); Mean Corpuscular HGB Conc 33.3 g/dL (31.5-36.5); Mean Corpuscular Volume 90 fL (80-100); Mean Platelet Volume 11.1 fL (9.1-12.4); Platelet Count 188 K/mm3 (150-400); RDW Coefficient Variation 13.9 % (11.7-14.2); RDW Standard Deviation 45.3 fL (35.1-46.3); Red Blood Cell Count 2.97 M/mm3 (4.30-5.90)
--- NOTE | 2023-10-24 04:13 | NUR ---
SHIFT SUMMARY NO ACUTE CHANGES THIS SHIFT. PT RESTED WELL. ASSISTED WITH REPOSITIONING IN BED PRN. LLE ELEVATED ON PILLOWS. ASHLY WRAP TO CAST REMAINS CDI. PERCOCET FOR PAIN MANAGEMENT. PLAN FOR PT TO DC TO SNF TODAY. USES CALL LIGHT APPROPRIATELY.
[2023-10-24 04:20] LABS: Bun/Creatinine Ratio 15.5 (12.0-20.0); Calcium, Blood 6.9 mg/dL (8.5-10.1); Creatinine, Blood 1.74 mg/dL (0.60-1.20); Potassium, Blood 3.6 mmol/L (3.5-5.5)
[2023-10-24 07:34] VITALS: BP 145/66
--- NOTE | 2023-10-24 11:36 | NUR ---
DISCHARGE NOTE: PATIENT WILL BE LEAVING WITH TRANSPORT TODAY 1200 TO [facility]. THIS NURSE JUST GAVE REPORT TO [facility] RN AARON. AFTER REPORT AARON DANIELLE HAD NO FURTHER QUESTIONS. PATIENT IS A&OX4. VS ARE WNL AND IS ON RA. PAIN IS MANAGED WITH PO PAIN MEDS. HIS LEFT FOOT HAS A SPLINT WITH ASHLY WRAP THAT IS C/D/I. HE IS ABLE TO WIGGLE ALL FINGERS AND TOES WHEN ASKED. IV WAS TAKEN OUT AND WNL. HE IS TOLERATING PO INTAKE AND IS VOIDING/PASSING GAS. PATIENT IS DRESSED AND HAS PERSONAL ITEMS IN THE ROOM GATHERED. AWAITING FOR TRANSPORT TO ARRIVE TO TAKE THE PATIENT BACK TO [facility].
--- NOTE | 2023-10-24 12:33 | NUR ---
TRANSPORT JUST ARRIVED AND IS TAKING THE PATIENT OVER TO [facility]. PATIENT HAS HIS PERSONAL BELONGINGS WITH HIM.
== END 2023-10-24 12:34 | DRG 493 ==
LOC: SURS 11:23 → ORSCMMR 11:23 → ORD 12:30 → PCU 15:11 → SURS 10-20 13:27 → ORSCMMR 10-21 11:22 → SURS 10-22 14:52 → ORSCSDS 10-22 15:15 → SURS 10-24 12:34
PROVIDERS: Internal Medicine; Podiatrist Foot & Ankle Surgery; ADMIT Internal Medicine
PROC: 0QSK04Z Reposition Left Fibula with Internal Fixation Device, Open Approach (ICD-10-PCS; 2023-10-21)
PROC: 0QPHX5Z Removal of External Fixation Device from Left Tibia, External Approach (ICD-10-PCS; 2023-10-21)
PROC: 0QSH04Z Reposition Left Tibia with Internal Fixation Device, Open Approach (ICD-10-PCS; principal; 2023-10-21 08:30)
PROC: 0DB68ZX Excision of Stomach, Via Natural or Artificial Opening Endoscopic, Diagnostic (ICD-10-PCS; 2023-10-22)
DX: S82.872B Displaced pilon fracture of left tibia, initial encounter for open fracture type I or II (principal); K22.10 Ulcer of esophagus without bleeding; N17.9 Acute kidney failure, unspecified; N18.30 Chronic kidney disease, stage 3 unspecified; E03.9 Hypothyroidism, unspecified; K25.9 Gastric ulcer, unspecified as acute or chronic, without hemorrhage or perforation; E78.5 Hyperlipidemia, unspecified; I44.4 Left anterior fascicular block; E86.0 Dehydration; E11.22 Type 2 diabetes mellitus with diabetic chronic kidney disease; N40.0 Benign prostatic hyperplasia without lower urinary tract symptoms; I95.1 Orthostatic hypotension; I95.2 Hypotension due to drugs; T40.605A Adverse effect of unspecified narcotics, initial encounter; W13.2XXA Fall from, out of or through roof, initial encounter; Y92.008 Other place in unspecified non-institutional (private) residence as the place of occurrence of the external cause; Z60.2 Problems related to living alone; Z87.891 Personal history of nicotine dependence; Z79.4 Long term (current) use of insulin; Z79.890 Hormone replacement therapy
CPT/HCPCS: 36415; 73590; 73610; 80048; 80053; 80069; 82947; 83735; 84484; 85014; 85018; 85025; 85027; 88305; 88341; 88342; 93005; 93010; 93306; 97110; 97162; 97166; 97530; A9270; C1713; C9113; J0690; J1815; J2001; J2250; J2405; J2704; J3010; J7030; J7120